=== PATIENT | female | born 1960 | race Caucasian/White ===

== ENCOUNTER 2023-11-04 17:04 | Emergency (ER) | payer OTHER, SELFPAY ==
[2023-11-04] VITALS (9 sets, daily range): BP systolic 143–190; BP diastolic 76–77; PULSE 48–100; RESP 16–24; TEMP 36.6; O2SAT 96–99; BMI 20.6
--- NOTE | 2023-11-04 17:30 | XR_ITS ---
The [address] [address] Patient Name: UMESH MARROQUIN MRN: [id number] date: 1960 Sex: F Assigned Patient Location: ER Current Patient Location: ER Accession/Order Number: [id number] Exam Date: 11/04/2023 17:37 Report Date: 11/04/2023 17:49 At the request of: COREY AGUDELO Procedure: XR chest 1V EXAM: XR chest 1V at 1735 hours HISTORY: chest pain COMPARISON: 05/08/2010 TECHNIQUE: AP upright portable chest x-ray FINDINGS: The heart is not enlarged and the vasculature is not distended. No acute infiltrate, effusion or pneumothorax is identified. The lungs are somewhat overexpanded. The osseous structures are grossly intact XR/XR chest 1V IMPRESSION: No acute infiltrate or evidence of cardiac decompensation. Mild chronic changes are noted. The overall appearance has not changed significantly. Electronically authenticated by: MEGAN BACA Date: 11/04/2023 17:49
--- NOTE | 2023-11-04 17:30 | ECG_ITS ---
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
[2023-11-04 17:40] LABS: Basophils Percent Auto 0.4 % (0.2-2.0); Eosinophils Absolute Auto 0.1 10^3/uL (0.0-0.7); Eosinophils Percent Auto 0.7 % (0.9-7.0); Hematocrit 38.9 % (36.0-48.0); Hemoglobin 13.3 g/dL (12.0-16.0); Immature Granulocytes Abs Auto 0.03 10^3/uL (0.00-0.03); Immature Granulocytes Pct Auto 0.3 % (0.0-0.5); Lymphocytes Absolute Auto 2.2 10^3/uL (1.2-3.8); Lymphocytes Percent Auto 22.5 % (20.5-60.0); Mean Corpuscular HGB Conc 34.2 g/dL (29.9-35.2); Mean Corpuscular Volume 93.7 fL (81.0-99.0); Mean Platelet Volume 9.5 fL (9.5-13.5); Monocytes Absolute Auto 0.5 10^3/uL (0.3-0.8); Monocytes Percent Auto 5.4 % (1.7-12.0); Neutrophils Absolute Auto 6.8 10^3/uL (1.4-6.5); Neutrophils Percent Auto 70.7 % (43.0-75.0); Platelet Count 287 10^3/uL (150-450); Red Blood Count 4.15 10^6/uL (4.20-5.40); Red Cell Distribution Width 11.7 % (11.0-15.0); White Blood Count 9.7 10^3/uL (4.0-11.0)
[2023-11-04 17:54] LABS: D Dimer 0.38 mg/L FEU (<=0.59)
--- NOTE | 2023-11-04 17:54 | ED.CHESTPAI1 ---
HPI - Chest Pain General Chief Complaint: Chest Pain Stated Complaint: chest pain Time Seen by Provider: 11/04/23 17:13 Source: patient and family Mode of arrival: walk-in Limitations: no limitations History of Present Illness HPI narrative: patient here complaining of a discomfort in her upper sternal area. Started around 1:30. She was at rest at the time it occurred and had not been exerting herself. She did not have any nausea vomiting or diaphoresis. It did not radiate into her back neck jaw or arms. It did not feel like gas heartburn or indigestion. She is not a previous cardiovascular disease. She does not had any recent viral illnesses Covid or influenza. She's not had any shortness of breath. She does smoke at least one pack of cigarettes a day for forty years. She has not had cardiac evaluation or echocardiogram or stress testing in the past. She states that her doctor approximately a year ago said that her cholesterol was borderline and offered her statin but she did not follow-up with that. Related Data Home Medications Medication Instructions Recorded Confirmed No Known Home Medications 11/04/23 11/04/23 Allergies Allergy/AdvReac Type Severity Reaction Status Date / Time No Known Drug Allergies Allergy Verified 11/04/23 17:08 Exam Narrative Exam Narrative: awake alert pleasant she did take some ibuprofen previously and she says the discomfort has gotten better. She said at its worst it was a 5-7/10. HEENT there is no scleral icterus or jugular vein distention. There is no carotid bruits. Her lungs were clear with some decreased aeration there is no pleural or pericardial rub. Heart sounds are normal with occasional ectopy. I do not hear murmur or gallop. Incidentally she indicated that forty years ago physician told her that she had mitral valve prolapse. Extremities do not show any phlebitis swelling edema or evidence of deep vein thrombosis. Neurological cognition and mentation are normal. Skin is also warm and dry with no with no diaphoresis pallor or cyanosis. Constitutional Vital Signs, click to edit/add: Last Vital Signs Temp 98 F 11/04/23 17:08 Pulse 72 11/04/23 17:40 Resp 19 11/04/23 17:40 BP 167/77 H 11/04/23 17:21 Pulse Ox 98 11/04/23 17:40 Course Vital Signs Vital signs: Vital Signs Temperature 98 F 11/04/23 17:08 Pulse Rate 48 L 11/04/23 17:08 Respiratory Rate 16 11/04/23 17:08 Blood Pressure 190/76 H 11/04/23 17:08 Pulse Oximetry 99 11/04/23 17:08 Temperature 98 F 11/04/23 17:08 Pulse Rate 72 11/04/23 17:40 Respiratory Rate 19 11/04/23 17:40 Blood Pressure 167/77 H 11/04/23 17:21 Pulse Oximetry 98 11/04/23 17:40 MDM - Chest Pain MDM Narrative Medical decision making narrative: this patient's troponin has come back elevated at two ninety-eight. Her EKG changes were noted before to include ST segment depression lead to three aVF with slight elevation in lead aVL. Her discomfort is gone. Nonetheless I suspect she's had a non-STEMI. She was started on a heparin drip and given two baby aspirin. I spoke with the senior care provider classification clerk in [place] and she is accepted the patient in transfer but I also will confer with the hospitalist before transfer. She is stable at this time Lab Data Labs: Lab Results 11/04/23 Range/Units 17:25 WBC 9.7 (4.0-11.0) 10^3/uL RBC 4.15 L (4.20-5.40) 10^6/uL Hgb 13.3 (12.0-16.0) g/dL Hct 38.9 (36.0-48.0) % MCV 93.7 (81.0-99.0) fL MCH 32.0 (26.7-34.0) pg MCHC 34.2 (29.9-35.2) g/dL RDW 11.7 (11.0-15.0) % Plt Count 287 (150-450) 10^3/uL MPV 9.5 (9.5-13.5) fL Neut % (Auto) 70.7 (43.0-75.0) % Lymph % (Auto) 22.5 (20.5-60.0) % [place] % (Auto) 5.4 (1.7-12.0) % Eos % (Auto) 0.7 L (0.9-7.0) % Baso % (Auto) 0.4 (0.2-2.0) % Neut # (Auto) 6.8 H (1.4-6.5) 10^3/uL Lymph # (Auto) 2.2 (1.2-3.8) 10^3/uL [place] # (Auto) 0.5 (0.3-0.8) 10^3/uL Eos # (Auto) 0.1 (0.0-0.7) 10^3/uL Baso # (Auto) 0.0 (0.0-0.1) 10^3/uL Abs Immat Gran (auto) 0.03 (0.00-0.03) 10^3/uL Imm/Tot Granulo (auto) 0.3 (0.0-0.5) % D-Dimer 0.38 (<=0.59) mg/L FEU Sodium 135 L (136-145) mmol/L Potassium 3.8 (3.5-5.1) mmol/L Chloride 101 (98-107) mmol/L Carbon Dioxide 24.9 (21.0-32.0) mmol/L Anion Gap 12.9 BUN 11.0 (7.0-18.0) mg/dL Creatinine 0.68 (0.55-1.02) mg/dL Est GFR ( Amer) >60 (>=60) Est GFR (Non-Af Amer) >60 (>=60) BUN/Creatinine Ratio 16.2 Glucose 133 H (74-106) mg/dL Calcium 9.1 (8.5-10.1) mg/dL Total Bilirubin 0.4 (0.2-1.0) mg/dL AST 22 (15-37) U/L ALT 21 (14-59) U/L Alkaline Phosphatase 91 (46-116) U/L Troponin I High Sens 298.5 H* (4.0-51.3) pg/mL NT-Pro-B Natriuret Pep 79.0 (<=900.0) pg/mL Total Protein 7.9 (6.4-8.2) g/dL Albumin 4.1 (3.4-5.0) g/dL Globulin 3.8 g/dL Albumin/Globulin Ratio 1.1 ECG Data Ischemic changes: acute NSTEMI Heart Score History: Highly Suspicious ECG: Sign. ST Depression Age: >45-<65 years Risk Factors: >3 Risk Factors/ HX of CAD:2 Troponin: >3X Normal Limit Total Heart Score Recommendations & Risks:: 9 Discharge Plan Discharge Chief Complaint: Chest Pain Clinical Impression: Non-STEMI (non-ST elevated myocardial infarction) Patient Disposition: [facility] Time of Disposition Decision: 18:48 Prescriptions / Home Meds: No Action No Known Home Medications Referrals: Physician,Non-Staff, MD [Primary Care Provider] - 1 week
[2023-11-04 18:10] LABS: Alanine Aminotransferase 21 U/L (14-59); Albumin Globulin Ratio 1.1; Albumin Level 4.1 g/dL (3.4-5.0); Alkaline Phosphatase 91 U/L (46-116); Anion Gap 12.9; Aspartate Amino Transferase 22 U/L (15-37); BUN Creatinine Ratio 16.2; Bilirubin Total 0.4 mg/dL (0.2-1.0); Calcium 9.1 mg/dL (8.5-10.1); Carbon Dioxide 24.9 mmol/L (21.0-32.0); Chloride 101 mmol/L (98-107); Estimated GFR (African America >60 (>=60); Estimated GFR (Non-African Ame >60 (>=60); Globulin 3.8 g/dL; Glucose 133 mg/dL (74-106); Potassium 3.8 mmol/L (3.5-5.1); Sodium 135 mmol/L (136-145); Total Protein 7.9 g/dL (6.4-8.2)
[2023-11-04 18:12] LABS: Troponin I High Sensitivity 298.5 pg/mL (4.0-51.3)
[2023-11-04] MEDS: ASPIRIN 81 MG TAB.CHEW 162 MG PO (18:19)
[2023-11-04] MEDS: HEPARIN SODIUM (PORCINE) 5,000 UNIT/ML VIAL 3300 UNIT IV (18:49)
[2023-11-04] MEDS: HEPARIN SODIUM,PORCINE/D5W 25,000 UNIT/500 ML IV.SOLN 13 UNIT IV (18:50)
[2023-11-04 18:51] LABS: INR 0.96; Prothrombin Time 10.2 sec (9.0-11.6)
== END 2023-11-04 20:55 | disposition short-term general hospital (02) ==
PROVIDERS: Emergency Provider Emergency Medicine Emergency Medical Services
DX: I21.4 Non-ST elevation (NSTEMI) myocardial infarction (principal); F17.210 Nicotine dependence, cigarettes, uncomplicated
CPT/HCPCS: 36415; 71045; 80053; 83880; 84484; 85025; 85378; 85610; 93005; 96374; 99285; J1644